=== PATIENT | male | born 1960 | race Caucasian/White ===

== ENCOUNTER 2016-12-03 09:43 | Emergency (ER) | payer MEDICARE ==
[2016-12-03 10:30] LABS: BASOPHIL# 0.1 X 10^3uL (0.0-0.1); BASOPHILS 0.5 % (0.0-2.0); EOSINOPHILS 1.1 % (0.0-6.0); EOSINOPHILS# 0.1 X 10^3uL (0.0-0.4); HEMATOCRIT 45.7 % (42.0-54.0); HEMOGLOBIN 15.5 g/dL (14.0-18.0); LYMPHOCYTES 15.2 % (20.0-40.0); LYMPHOCYTES# 1.6 X 10^3uL (0.8-3.8); MEAN CELL VOLUME 85.2 fL (84.0-102.0); MEAN PLATELET VOLUME 8.2 fL (7.4-10.4); MONOCYTES 8.5 % (2.0-10.0); MONOCYTES# 0.9 X 10^3uL (0.2-1.0); NEUTROPHILS 74.7 % (54.0-75.0); PLATELET COUNT 346 X 10^3uL (130-440); RED BLOOD COUNT 5.36 X 10^6uL (4.20-6.10); RED CELL DISTRIBUTION WIDTH 12.3 % (11.5-14.5); WHITE BLOOD COUNT 10.7 X 10^3uL (3.9-10.7)
[2016-12-03 10:42] LABS: A/G RATIO 1.2; ALBUMIN 4.4 g/dL (3.5-5.0); ALKALINE PHOSPHATASE 91 U/L (38-126); ALT 54 U/L (21-72); AST 27 U/L (17-59); BILIRUBIN, TOTAL 1.3 mg/dL (0.2-1.3); BLOOD UREA NITROGEN 28 mg/dL (9-20); CALCIUM 10.1 mg/dL (8.4-10.2); CHLORIDE 104 mmol/L (98-107); CREATININE 1.5 mg/dL (0.7-1.3); EST GLOMERULAR FILTRATION RATE 52 mL/min; GLUCOSE 166 mg/dL (70-100); POTASSIUM 3.3 mmol/L (3.5-5.1); SODIUM 146 mmol/L (137-145)
[2016-12-03] MEDS ORDERED: IPRATROPIUM/ALBUTEROL 0.5/3 MG 3 ML AMPUL.NEB INHALATION ONE (10:52)
[2016-12-03 10:54] LABS: TROPONIN I < 0.012 ng/mL (0.00-0.034)
--- NOTE | 2016-12-03 13:46 | ER PHYSICIAN DOCUMENTATION ---
Physician Documentation [facility] Name:Aden Magdaleno Age:56 yrs Sex:Male :1960 Arrival Date:12/03/2016 Time:09:43 Bed4 Private MD:Ras Vasquez ED, Tom Disposition: 12/03 15:00 Chart complete. tl1 Disposition: 12/03/16 12:51 Discharged to Home/Self Care. Impression: Upper Respiratory Infection (URI). - Condition is Good. - Discharge Instructions: URI, Viral w/ Wheezing (Adult). - Prescriptions for Combivent Respimat 20- 100 mcg/actuation Inhalation aerosol - inhale 1 puff by INHALATION route 4 times per day not to exceed 6 puffs in 24hrs; 1 Inhaler. Prednisone 20 mg Oral Tablet - take 2 tablet by ORAL route once daily for 5 days; 10 tablet. Tessalon Perles 100 mg Oral Capsule - take 1 capsule by ORAL route every 8 hours As needed; 15 capsule. Tussionex Pennkinetic ER 8- 10 mg/5 mL Oral Suspension, Sust. Release 12 hr - take 5 milliliter by ORAL route every 12 hours As needed; 120 milliliter. Zithromax Z- David 250 mg Oral Tablet - take 1 tablet by ORAL route as directed for 5 days Day 1 - take two (2) tablets one time. Day 2, 3, 4 , 5 take one (1) tablet once daily.; 6 tablet. - Medical Reconciliation form form. - Follow up: Ras Vasquez MD; When: 2 - 3 days; Reason: Recheck today's complaints, Continuance of care. - Problem is an ongoing problem. - Symptoms have improved. HPI: 09:50 This 56 yrs old Male presents to ER via Private Vehicle with complaints of tl1 Flu Symptoms. 09:50 He has been ill with URI symptoms for the last 5 weeks. About a week to 10 days ago he tl1 was seen by Dr Vasquez and thought perhaps to have acute bacterial sinusitis, treated with amoxicillin. That has not really helped. His symptoms are no better and perhaps a little worse, with loss of his voice and a persistent somewhat worsening harsh somewhat productive cough. No f/c/s, hemoptysis or chest pain. He is mildly dyspneic. He has a h/o a remote ICH, with a ventricular drain. No N/V/D. . Historical: - Allergies: No known drug Allergies; - Home Meds: 1. Allopurinol Oral 2. amlodipine oral 3. Amoxicillin Oral 4. aspirin Oral 5. atorvastatin oral 6. hygroton - PMHx: DEPRESSION; dyslipidemia ; HYPERTENSION; - PSHx: subarachnoid hemmorhage ; Tonsillectomy; programmable Ventriculo; - Tetanus: unknown. - Ebola Screening: : Patient negative for fever greater than or equal to 101.5 degrees Fahrenheit, and additional compatible Ebola Virus Disease symptoms. Patient denies exposure to infectious person. Patient denies travel to an Ebola-affected area in the 21 days before illness onset. No symptoms or risks identified at this time. . - Immunization history: Flu Vaccine unknown. - Social history: Smoking status: Patient uses tobacco products, current every day smoker. ROS: 10:00 Cardiovascular: Negative for chest pain, edema, orthopnea, palpitations, paroxysmal tl1 nocturnal dyspnea, acute changes. 10:00 Respiratory: Positive for cough, dyspnea on exertion, Negative for orthopnea, pleurisy, shortness of breath, wheezing. 10:00 Abdomen/GI: Negative for abdominal pain, nausea, vomiting, diarrhea. 10:00 Skin: Negative for rash. 10:00 Neuro: Negative for dizziness, visual changes, weakness. 10:00 All other systems are negative. Exam: 10:00 Constitutional: The patient appears in no acute distress, alert, awake, well developed, tl1 well hydrated, well groomed, well nourished, uncomfortable. 10:00 Head/face: Exam is negative for acute changes. 10:00 Eyes: Pupils: equal, round, and reactive to light and accomodation. 10:00 ENT: External ear(s): are unremarkable, TM's: are normal, Mouth: no acute changes, Posterior pharynx: is normal. 10:00 Neck: External neck: is normal, ROM/movement: is normal. 10:00 Cardiovascular: Rate: tachycardic, Rhythm: regular, Heart sounds: normal, Edema: is not appreciated, JVD: is not appreciated. 10:00 Respiratory: the patient does not display signs of respiratory distress, Respirations: normal, Breath sounds: are normal, no bronchial sounds, no decreased breath sounds, no rales, rhonchi, no stridor, no wheezing. 10:00 Abdomen/GI: Palpation: abdomen is soft and non-tender. 10:00 Musculoskeletal/extremity: Exam is negative for 10:00 Musculoskeletal/extremity: Exam is negative for acute changes. 10:00 Skin: Exam negative for rash. 10:00 Neuro: Exam negative for acute changes, Orientation: is normal, Gait: is steady. Vital Signs: 09:55 BP 133 / 97; Pulse 111; Resp 26; Temp 96.6; Pulse Ox 95% on R/A; Weight 96.16 kg; cb Height 5 ft. 10 in. (177.80 cm); Pain 6/10; 13:00 BP 124 / 87; Pulse 104; Pulse Ox 94% on R/A; cb 09:55 Body Mass Index 30.42 (96.16 kg, 177.80 cm) cb MDM: 09:53 Patient medically screened. tl1 12:00 Differential diagnosis: bronchitis, flu, URI, PNEUMONIA. Antibiotic administration: The tl1 patient is discharged and will get outpatient antibiotics, Zithromax. Data reviewed: vital signs, nurses notes, old medical records, radiologic studies, plain films, and as a result, I will discharge patient. Data interpreted: monitor and storage bin tender: Pulse oximetry: on room air is 94 %. Test interpretation: by ED physician or midlevel provider: plain radiologic studies. Counseling: I had a detailed discussion with the patient and/or guardian regarding: the historical points, exam findings, and any diagnostic results supporting the discharge/admit diagnosis, lab results, radiology results, the need for outpatient follow up, to return to the emergency department if symptoms worsen or persist or if there are any questions or concerns that arise at home. Response to treatment: the patient's symptoms have mildly improved after treatment, and as a result, I will discharge patient. Physician consultation: Antionette Kaufman MD was called at 14:00, was contacted at 14:00, regarding patient's condition, outpatient follow-up, in 2-3 days, and will see patient in office, in 2-3 days. 13:00 ED course: CXR was normal. No infiltrate. Read by Dr Jamal Meneses.. tl1 12/03 10:37 Order name: CBC AUTO DIF, MDIF/RMOR IF IND; Complete Time: 11:13 EDMS 12/03 11:03 Interpretation: WHITE BLOOD COUNT 10.7; HEMOGLOBIN 15.5; HEMATOCRIT 45.7; PLATELET tl1 COUNT 346; NEUTROPHILS 74.7; LYMPHOCYTES 15.2; MONOCYTES 8.5; EOSINOPHILS 1.1. 12/03 10:55 Order name: COMPREHENSIVE METABOLIC PANEL; Complete Time: 11: EDMS 12/03 11:03 Interpretation: Normal Except: POTASSIUM 3.3; GLUCOSE 166; BLOOD UREA NITROGEN 28; tl1 CREATININE 1.5; EST GLOMERULAR FILTRATION RATE 52. 12/03 10:55 Order name: BNP,NT-PRO; Complete Time: 11: EDMS 12/03 11:04 Interpretation: Normal: BNP,NT-PRO 108. tl1 12/03 10:55 Order name: TROPONIN I; Complete Time: 11: EDMS 12/03 11:04 Interpretation: Normal: TROPONIN I < 0.012. tl1 Dispensed Medications: 10:15 Drug: DuoNeb (Albuterol 2.5 mg, Atrovent 0.5 mg); 3 ml; Route: Nebulizer; cb 13:44 Follow up: Response: No adverse reaction cb 10:15 Drug: predniSONE 40 mg; Route: PO; cb 13:45 Follow up: Response: No adverse reaction cb Point of Care Testing: Guaiac: 12:00 Stool Guaiac: Negative; Stool Hemoccult Control: Pass; cb Signatures: Re Stratton, Renny Ahuja RN, cb, MD MD tl1
--- NOTE | 2016-12-03 13:46 | ER NURSING DOCUMENTATION ---
Nurse's Notes [facility] Name:Aden Magdaleno Age:56 yrs Sex:Male :1960 Arrival Date:12/03/2016 Time:09:43 Bed4 Private MD:Ras Vasquez Diagnosis:Upper Respiratory Infection (URI) Presentation: 12/03 09:53 Presenting complaint: Patient states: cough. Transition of care: Home. cb 09:53 Method Of Arrival: Private Vehicle cb 09:53 Acuity: TANYA 4 cb 10:14 Acuity: TANYA 2 lpr Triage Assessment: 09:55 General: Appears distressed, well groomed, Behavior is cooperative. Pain: Complains of cb pain in headache Pain currently is 6 out of 10 on a pain scale. EENT: No deficits noted. EENT: Throat patient has hoarse sounding voice. Neuro: Level of Consciousness is awake, alert, Oriented to person, place, time, event. Cardiovascular: Capillary refill < 3 seconds. Respiratory: Airway is patent Trachea midline Respiratory effort is even, unlabored, Respiratory pattern is regular, symmetrical, Sputum is thick, brown green yellow Breath sounds are clear in right upper lobe, left upper lobe, right middle lobe and left lower lobe Breath sounds with rhonchi in left posterior lower lobe. GI: Reports tolerance of fluids, black stools every 30 mins since last night. : No deficits noted. Derm: No deficits noted. Musculoskeletal: No deficits noted. Historical: - Allergies: No known drug Allergies; - Home Meds: 1. Allopurinol Oral 2. amlodipine oral 3. Amoxicillin Oral 4. aspirin Oral 5. atorvastatin oral 6. hygroton - PMHx: DEPRESSION; dyslipidemia ; HYPERTENSION; - PSHx: subarachnoid hemmorhage ; Tonsillectomy; programmable Ventriculo; - Tetanus: unknown. - Ebola Screening: : Patient negative for fever greater than or equal to 101.5 degrees Fahrenheit, and additional compatible Ebola Virus Disease symptoms. Patient denies exposure to infectious person. Patient denies travel to an Ebola-affected area in the 21 days before illness onset. No symptoms or risks identified at this time. . - Immunization history: Flu Vaccine unknown. - Social history: Smoking status: Patient uses tobacco products, current every day smoker. Screenin:30 Infectious Disease Risk None. Abuse screen: Denies threats or abuse. Denies injuries cb from another. Nutritional screening: No deficits noted. Vital Signs: 09:55 BP 133 / 97; Pulse 111; Resp 26; Temp 96.6; Pulse Ox 95% on R/A; Weight 96.16 kg; cb Height 5 ft. 10 in. (177.80 cm); Pain 6/10; 13:00 BP 124 / 87; Pulse 104; Pulse Ox 94% on R/A; cb 09:55 Body Mass Index 30.42 (96.16 kg, 177.80 cm) cb ED Course: 09:43 Patient arrived in ED. ds 09:44 Ras Vasquez MD is Private Physician. ds 09:53 Renny Reyna MD is Attending Physician. tl1 09:53 Re Stratton, SELENA is Primary Nurse. cb 09:54 Triage completed. cb 10:00 Labs drawn. (by ED staff). Sent per order to lab. Inserted peripheral IV: 18 gauge in cb left antecubital area and blood collected. 10:30 Patient moved to radiology. ms 10:30 Valuables Remains with patient Patient has correct armband on for positive cb identification. Placed in gown. Bed in low position. Call light in reach. Side rails up X2. Pulse Ox - RN Monitoring Only NIBP On - RN Monitoring Only. 10:46 Patient moved back from radiology. ms 12:50 Ras Vasquez MD is Referral Physician. tl1 Administered Medications: 10:15 Drug: DuoNeb (Albuterol 2.5 mg, Atrovent 0.5 mg); 3 ml; Route: Nebulizer; cb 13:44 Follow up: Response: No adverse reaction cb 10:15 Drug: predniSONE 40 mg; Route: PO; cb 13:45 Follow up: Response: No adverse reaction cb Point of Care Testing: Guaiac: 12:00 Stool Guaiac: Negative; Stool Hemoccult Control: Pass; cb Output: 15:37 Urine: 200ml (Voided); Total: 200ml. cb Outcome: 12:51 Discharge ordered by . tl1 13:30 Discharged to home ambulatory. cb 13:30 Condition: stable 13:30 Discharge instructions given to patient, Instructed on discharge instructions, follow up and referral plans. Demonstrated understanding of instructions, medications, Prescriptions given X 4. 13:45 Patient left the ED. cb 12/04 11:24 Discharge F/U Call: Unable to reach: no answer st 12/05 10:23 Discharge F/U Call: Unable to reach: no answer st Signatures: Re Stratton, RN RN Karen Forbes RN RN st Maria Guadalupe, Maria R, Reg Reg Magda Graham ms, Leslie, RN RN lpr Leigh, Tom, MD MD tl1
--- NOTE | 2016-12-03 14:56 | RADIOLOGY REPORT ---
Two views of the chest, without prior films for comparison, demonstrate the heart, vessels and lungs to be unremarkable. No infiltrate, fluid or pneumothorax is seen. Incidentally noted is a catheter traversing the right hemithorax from superior to inferior, presumably representing a ventriculoperitoneal shunt. IMPRESSION: Chest x-ray demonstrates no acute cardiopulmonary abnormality. MTDD
== END 2016-12-03 13:45 | disposition home or self-care (01) ==
LOC: ER 09:43
DX: J06.9 Acute upper respiratory infection, unspecified (principal); R06.00 Dyspnea, unspecified; I10 Essential (primary) hypertension; Z79.899 Other long term (current) drug therapy; Z79.82 Long term (current) use of aspirin
CPT/HCPCS: 71020; 80053; 83880; 84484; 85025; 94640; 99284; J7512; J7620